=== PATIENT | male | born 1945 | race Caucasian/White ===

== ENCOUNTER 2017-05-30 14:53 | Emergency (ER) | payer MEDICAID, OTHER ==
[~2017-05-30] VITALS: Ht 182.9 cm; Wt 131.7 kg
[2017-05-30] MEDS ORDERED: MORPHINE SULFATE 4 MG/ML, 1ML ONE ×2 (15:36→18:16)
[2017-05-30] MEDS ORDERED: ASPIRIN 81 MG TABLET CHEW ONE (15:36)
[2017-05-30] MEDS ORDERED: ONDANSETRON 2MG/ML, 2ML ONE (15:36)
[2017-05-30] MEDS: MORPHINE SULFATE 4 MG/ML, 1ML IVPush PRN ×2 (15:45→18:19)
[2017-05-30 15:51] LABS: HEMATOCRIT 39.7 % (39.2-51.8); HEMOGLOBIN 13.1 g/dL (13.7-18.0); WHITE BLOOD COUNT 7.4 x10^3/uL (3.4-10)
[2017-05-30] MEDS ORDERED: SODIUM CHLORIDE FLUSH 10ML SYR IVF ONE (16:00)
[2017-05-30] MEDS ORDERED: ONDANSETRON 2MG/ML, 2ML IVPush ONE (16:00)
[2017-05-30] MEDS ORDERED: ASPIRIN 81 MG TABLET CHEW PO ONE (16:00)
[2017-05-30 16:04] LABS: BLOOD UREA NITROGEN 19 mg/dL (7-18)
[2017-05-30 16:09] LABS: ASPARTATE AMINO TRANSFERASE 15 U/L (15-37)
[2017-05-30 16:15] LABS: IS PT STATUS REG ER OR PRE ER? YES
[2017-05-30] MEDS ORDERED: OMNIPAQUE 350 MG/ML, 100ML BOTTLE ONE (17:18)
[2017-05-30 18:20] VITALS: BP 119/56
[2017-05-30] MEDS ORDERED: MORPHINE SULFATE 4 MG/ML, 1ML IVPush PRN (18:30)
== END 2017-05-30 18:40 | disposition home or self-care (01) ==
LOC: ED 16:10
DX: S22.32XA Fracture of one rib, left side, initial encounter for closed fracture (principal); R09.02 Hypoxemia; N28.9 Disorder of kidney and ureter, unspecified; E11.9 Type 2 diabetes mellitus without complications; X58.XXXA Exposure to other specified factors, initial encounter; Y93.89 Activity, other specified; Y92.89 Other specified places as the place of occurrence of the external cause; Y99.8 Other external cause status
CPT/HCPCS: 36415; 71010; 71275; 80053; 84484; 85025; 85379; 93005; 96374; 96375; 96376; 99285; J2405; Q9967